=== PATIENT | female | born 1975 | race Caucasian/White ===

== ENCOUNTER 2017-04-29 14:24 | Emergency (ER) | payer OTHER ==
[~2017-04-29] VITALS: Ht 162.6 cm; Wt 84.0 kg
[2017-04-29 14:28] VITALS: BP 113/54; PULSE 86; RESP 17; O2SAT 99
--- NOTE | 2017-04-29 14:50 | ED.REPORT ---
HPI-Rash / Abscess Date of Service Apr 29, 2017 ED Provider: Malka Welch History of Present Illness: 41-year-old female here for abscess on her right upper thigh. It is been there here few days and gradually got worse this morning. She does have history of IV drug use but did not inject in this area. Last used 3 days ago. Her PCP is in [place] she is in the area camping and plans to go home tomorrow. Denies fever, chest pain, lethargy or any other complaints. Tetanus is up-to-date. No history of abscess Nursing Notes Stated Complaint: POSS R LEG INFECTION Chief Complaint: Skin Rash/Abscess Nursing Notes Reviewed: Yes Allergies: Coded Allergies: ciprofloxacin (Verified Allergy, Mild, 04/29/17) Uncoded Allergies: PENICILLIN (Allergy, Intermediate, 04/29/17) Scheduled Cephalexin (Keflex) 500 Mg Capsule 500 MG PO QID Sulfamethoxazole/Trimeth 800-160 mg (Bactrim DS) 1 Each Tablet 1 TABLET PO BID General Time Seen by MD: 14:39 Chief Complaint Abscess, Red area Hx Obtained From: Patient Arrived By: Walk-in Onset Occurred: 4 days ago Symptom Duration: Constant Location: : Lower extremity (right) Severity: Current: Severe Severity: Maximum: Severe Pertinent Negative: Pt denies other symptoms Similar Sx Previous: No Past Medical History Past Medical History Notes: IV drug use Review of Systems Constitutional: Denies: Chills, Fatigue, Fever Respiratory: Denies: Dyspnea on exertion Cardiovascular: Denies: Chest pain, Edema GI: Denies: Abdominal pain, Nausea, Vomiting Musculoskeletal: Reports: Extremity pain, Extremity swelling Skin: Reports Rash Complete sys rev & neg: except as marked. Physical Exam Initial Vital Signs Vital Signs (First) Date Time Temp Pulse Resp B/P Pulse Ox O2 Delivery O2 Flow Rate FiO2 04/29/17 14:28 36.8 86 17 113/54 99 Room Air Initial VS: Reviewed, Vital signs normal General/Constitutional: Awake, Alert, Well appearing Rash / Lesion Notes: Large area of erythema noted to her right upper thigh. There is a visible head. 2 inch surrounding area of induration around head, this area is very tender. Slightly tender erythema extends about 8 inches down Rash / Lesion Location: Positive: Thigh R Procedures Procedure Notes: brownish/purulent/sanguinous drainage. prodded until sanguinous drainage only. line drawn around erythema Incision & Drainage Abscess Procedure Performed by: [facility] pract Consent / Setup / Site Prep: Consent from patient Local Anesthesia: Lidocaine w epi 1% Incised Abscess with Scalpel: #11 Pus Drained: Large, Purulent discharge Discharge & Departure Shift Change Sign-Out Response to Therapy: Improved Impression: Primary Impression: Abscess Additional Impression: Cellulitis Site of cellulitis: extremity Site of cellulitis of extremity: lower extremity Laterality: right Qualified Code: L03.115 - Cellulitis of right lower limb Discharge Condition Condition: Stable Patient Instructions: Abscess (ED) Additional Instructions: Follow-up with your PCP or a walk in clinic in 2 days for recheck. Return to emergency room if the erythema extends beyond the line drawn or acute fevers or worsening condition. Take your antibiotics as prescribed. Apply heat to abscess to help with drainage as discussed. You may use ibuprofen or Tylenol as needed for pain. Referrals: NOPCP (PCP) EDSupervising Provider for APC: Tony Dutton Linnea K [facility] Apr 29, 2017 14:50
[2017-04-29] MEDS ORDERED: CEPH-512 PO (15:59)
[2017-04-29] MEDS ORDERED: SULF1TAB7 PO (15:59)
[2017-04-29] MEDS ORDERED: Trimethoprim-Sulfa 160 mg-800 mg Tablet PO ONE (16:00)
[2017-04-29 16:17] VITALS: BP 113/54; PULSE 86; RESP 17; O2SAT 99
== END 2017-04-29 16:18 | disposition home or self-care (01) ==
LOC: SED 14:24
DX: L02.415 Cutaneous abscess of right lower limb (principal); L03.115 Cellulitis of right lower limb; Z88.0 Allergy status to penicillin; Z88.1 Allergy status to other antibiotic agents